=== PATIENT | female | born 1955 | race African-American/Black ===

== ENCOUNTER → 2020-12-03 | Outpatient (CLI) | payer OTHER ==
[~2020-12-03] MED LIST: GLUCOPHAGE500 MG PO; LEVEMIR; LISINOPRIL2.5 MG PO; PREDNISONE 20 M20 MG PO
== END ==
LOC: CAT 07:49
PROVIDERS: ATTEND Family Medicine
DX: Z13.6 Encounter for screening for cardiovascular disorders (principal); I25.10 Atherosclerotic heart disease of native coronary artery without angina pectoris; E78.00 Pure hypercholesterolemia, unspecified